=== PATIENT | female | born 1950 | race Caucasian/White ===

== ENCOUNTER 2019-11-30 09:02 | Emergency (ER) | payer MEDICARE, SELFPAY ==
--- NOTE | ~2019-11-30 | XR_ITS ---
EXAMINATION: XR chest 2V EXAM DATE: 11/30/2019 09:44 INDICATION: Weakness. TECHNIQUE: Frontal and lateral projections of the chest obtained and reviewed. Comparison is made to prior examination from 05/29/2004. FINDINGS: The lungs are clear. There are no pleural effusions. The cardiomediastinal silhouette is within normal limits. There is no pneumothorax suspected. Moderate thoracic spondylosis. IMPRESSION: No acute cardiopulmonary findings. Reviewed, dictated and finalized at location A.
--- NOTE | ~2019-11-30 | CT_ITS ---
EXAMINATION: CT brain wo con DATE: 11/30/2019 10:44 INDICATION: Altered mental status post fall from bed with right-sided head injury TECHNIQUE: Computed tomography (CT) of the head was performed without intravenous contrast. Sagittal and coronal reconstructions were performed. The mA was adjusted according to patient size. Iterative reconstruction technique was employed. The dose-length product was 605.33 mGy-cm. COMPARISON: head CT dated 05/27/2015 FINDINGS: No fracture. No acute intracranial hemorrhage, acute infarction or abnormal extra axial fluid collect ion. Small region of encephalomalacia in the medial right occipital lobe consistent with chronic infa rct. Symmetric prominence of the sulci consistent with mild age-appropriate diffuse cerebral volume l oss. Ventricles are normal and symmetric. No mass/mass effect. Small bilateral mastoid effusions. Ch anges of bilateral intraocular lens replacement. The orbits, paranasal sinuses and mastoid air cells are normal. Mild atherosclerotic calcification at the bilateral carotid siphons. IMPRESSION: 1. No fracture or acute intracranial process. 2. Small old right occipital lobe infarct. Reviewed, dictated and finalized at location A.
[2019-11-30 09:06] VITALS: BP 149/85; PULSE 78; RESP 15; TEMP 36.3; O2SAT 100
--- NOTE | 2019-11-30 09:20 | ECG_ITS ---
Measurements Intervals [place] Rate: 82 P: 56 NH: 170 QRS: 56 QRSD: 94 T: 47 QT: 369 QTc: 433 Interpretive Statements SINUS RHYTHM MINIMAL Q WAVES- INFERIOR LEADS BASELINE ARTIFACT- I, II, III, AVR, AVL, AVF, V1, V4 BORDERLINE ECG Electronically Signed On 11-30-2019 10:14:35 CDT by Hesham Mathur D.O.
[2019-11-30 09:21] LABS: Glucose Point of Care 78 (65-105)
[2019-11-30 09:24] VITALS: PULSE 84; RESP 22
[2019-11-30 09:30] VITALS: PULSE 82; RESP 16
--- NOTE | 2019-11-30 09:45 | ED.FALL ---
HPI - Fall General Chief Complaint: Fall Stated Complaint: BACK PAIN /FATIGUE Time Seen by Provider: 11/30/19 09:46 Source: patient and family () Mode of arrival: EMS Limitations: no limitations History of Present Illness HPI Narrative: A 69 y/o female presents to the ED, via EMS, after a fall last night. Per , pt fell out of bed when trying to get up to use the restroom. Pt fell onto her knees and she denies a HI. Pt then fell asleep in her recliner and then didn't know where she was or what day it was when she woke up this morning. Pt was not confused yesterday according to her . Pt did take her Vicodin medication and a shot of Fireball last night before she went to sleep. 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 She reports a cough, diarrhea, and urinary frequency due to her water pill, but denies N/V. Fall witnessed: yes, by family () Place fall occurred: home Context: other (fell out of bed) Related Data Home Medications Medication Instructions Recorded Confirmed aspirin 325 mg PO DAILY 07/31/19 07/31/19 Allergies Allergy/AdvReac Type Severity Reaction Status Date / Time rosuvastatin Allergy Unknown Unknown Verified 11/30/19 09:14 Sulfa (Sulfonamide Allergy Unknown Unknown Verified 11/30/19 09:14 Antibiotics) sulfanilamide Allergy Unknown Unknown Verified 11/30/19 09:14 Review of Systems Review of Systems: All systems reviewed & are unremarkable except as noted in HPI and below Constitutional: Comments: Reports: a fall Respiratory: Respiratory: Reports cough Gastrointestinal: Gastrointestinal: Reports diarrhea, Denies nausea and Denies vomiting Genitourinary: Genitourinary: Reports nocturia Neurologic: Comments: Denies: HI PMFSH Past Medical History Medical History Arthritis CVA (cerebral vascular accident) Diabetes Enlarged blind spot of left eye Gout HLD (hyperlipidemia) HTN (hypertension) Surgical History Surgical History H/O section H/O laparoscopy History of appendectomy Family History Family History Mother Family history of diabetes mellitus in first degree relative Patient's mother is Acute myocardial infarction Sibling Family history of malignant neoplasm Family history of dementia Family history of Parkinson's disease Father Family history of malignant neoplasm Social History Social History Smoking status: Current every day smoker Smoking end date: 09/12/13 Alcohol intake: never Comments PCP: Dr. Vazquez Exam Const: General: no acute distress, alert and ill appearing chronically Orientation/consciousness: patient oriented x3 HENMT: Mouth: Yes dry mucous membranes Eyes: Pupils: Equal, round and reactive pupils present Resp: Effort & Inspection: normal respiratory effort Auscultation: clear to auscultation bilaterally Cardio: Rate: regular rate Rhythm: regular rhythm Skin: General skin exam: normal color Neuro: General: patient oriented x3, moves all extremities and no focal motor deficits Speech: normal speech Extrem: General: normal to inspection Course Vital Signs Vital signs: Vital Signs Temperature 36.3 C L 11/30/19 09:06 Pulse Rate 78 11/30/19 09:06 Respiratory Rate 15 11/30/19 09:06 Blood Pressure 149/85 H 11/30/19 09:06 Pulse Oximetry 100 11/30/19 09:06 Temperature 36.3 C L 11/30/19 09:06 Pulse Rate 84 11/30/19 12:08 Respiratory Rate 14 11/30/19 12:08 Blood Pressure 156/77 H 11/30/19 12:08 Pulse Oximetry 94 11/30/19 12:08 MDM - Fall MDM Narrative Medical decision making narrative: Work-up essentially negative. Symptoms most likely due to combining ambien, pain
[2019-11-30 09:53] LABS: Basophils Absolute Auto 0.1 K/mm3 (0.0-0.1); Basophils Percent Auto 1.2 % (0.2-1.2); Eosinophils Absolute Auto 0.3 K/mm3 (0-0.3); Eosinophils Percent Auto 4.9 % (0-4.4); Hematocrit 41.6 % (37.0-47.0); Hemoglobin 13.3 g/dL (12.0-15.0); Immature Granulocyte Absolute 0.01 K/mm3 (0.00-0.031); Immature Granulocyte Percent A 0.2 % (0-0.5); Lymphocytes Absolute Auto 2.08 K/mm3 (0.9-3.2); Lymphocytes Percent Auto 35.2 % (18.3-44.2); Mean Corpuscular Volume 93.9 fl (80-100); Monocytes Absolute Auto 0.5 K/mm3 (0.1-0.6); Neutrophils Percent Auto 50.5 % (45.5-73.1); Platelet Count Result 198 k/mm3 (150-375); Red Blood Count 4.43 M/mm3 (4.2-5.4); Red Cell Distribution Width 15.9 % (11.5-14.5); White Blood Count 5.9 K/mm3 (4.5-10.0)
[2019-11-30 10:05] LABS: Alanine Aminotransferase 30 U/L (4-35); Albumin Level 4.4 g/dL (3.5-5.1); Alkaline Phosphatase 108 U/L (38-126); Aspartate Amino Transferase 34 U/L (14-36); Bilirubin,Total 0.4 mg/dL (0.2-1.3); Blood Urea Nitrogen 24 mg/dL (7-17); Calcium 8.8 mg/dL (8.4-10.2); Carbon Dioxide 25 mmol/L (22-30); Chloride 105 mmol/L (98-107); Estimated CRCL calculation 43 ml/min; Estimated Glomerular Filt Rate 45; Glucose 87 mg/dL (65-105); Potassium 4.5 mmol/L (3.4-5.0); Sodium 139 mmol/L (137-145)
[2019-11-30 10:06] LABS: Add Urine Microscopic? NO; Appearance Urine Clear (Clear); Bilirubin Urine Negative (Negative); Blood Urine Negative (Negative); Color Urine Colorless (Yellow); Glucose Urine UA Negative (Negative); Ketones Urine Negative (Negative); Leukocyte Esterase Ur Negative LEU/UL (Negative); Nitrate Urine Negative (Negative); Protein Urine Negative (Negative); Specific Grav Ur 1.008 (1.001-1.035); Urobilinogen Urine Negative mg/dL (<2.0)
[2019-11-30] MEDS: SODIUM CHLORIDE 0.9% IV 1,000 ML 999 ML IV CONT (10:25)
[2019-11-30 12:08] VITALS: BP 156/77; PULSE 84; RESP 14; O2SAT 94
== END 2019-11-30 12:09 | disposition home or self-care (01) ==
PROVIDERS: Emergency Provider Emergency Medicine; PCP Internal Medicine
DX: R41.0 Disorientation, unspecified (principal); M19.90 Unspecified osteoarthritis, unspecified site; Z86.73 Personal history of transient ischemic attack (TIA), and cerebral infarction without residual deficits; E11.9 Type 2 diabetes mellitus without complications; E78.5 Hyperlipidemia, unspecified; I10 Essential (primary) hypertension; M10.9 Gout, unspecified; Z79.82 Long term (current) use of aspirin
CPT/HCPCS: 36415; 51701; 70450; 71046; 80053; 81003; 82948; 85025; 93005; 96360; 99284; J7030

== ENCOUNTER 2020-12-03 07:06 | Outpatient (CLI) | payer MEDICARE, SELFPAY ==
--- NOTE | ~2020-12-03 | XR_ITS ---
XR sinus <3V 12/03/2020 07:29 Indication: Right sinus drainage Procedure: 5 views of the paranasal sinuses Comparison: No prior studies for comparison. Findings: No significant opacification of the paranasal sinuses. No air-fluid levels. No significant mucoperiosteal reaction identified. Mild bowing of the nasal septum to the right superiorly. Mastoids appear pneumatized. Impression: 1: No significant abnormality of the paranasal sinuses. Reviewed, dictated and finalized at location A. Impression: 1: No significant abnormality of the paranasal sinuses.
== END 2020-12-03 07:07 | disposition home or self-care (01) ==
PROVIDERS: PCP Internal Medicine; Visit Provider Internal Medicine
DX: R43.2 Parageusia (principal)
CPT/HCPCS: 70210

== ENCOUNTER 2021-01-30 07:38 | Outpatient (CLI) | payer MEDICARE, SELFPAY ==
--- NOTE | ~2021-01-30 | US_ITS ---
EXAMINATION: US art doppler w press UE BI EXAM DATE: 01/30/2021 08:40 INDICATION: I73.9 - Peripheral vascular disease, unspecified PVD. Red discoloration 2 digits. TECHNIQUE: Segmental pressures and plethysmographic and Doppler waveforms of the upper extremity phyllis grzegorz were obtained. There is no prior study for comparison. FINDINGS: Right and left brachial artery pressures of 153 mm Hg and 146 mm Hg, respectively, are concordant (no rmal difference <= 30 mmHg). RIGHT: Right ulnar/brachial arterial Doppler ratio 0.90 (138 mmHg). Right radial/brachial arterial Doppler ratio 0.86 (132 mmHg). Right index finger 146 mmHg. The waveforms are biphasic. LEFT: Left ulnar/brachial arterial Doppler ratio 0.82 (119 mmHg). Left radial/brachial arterial ratio 0.92 (135 mmHg). Left index finger 143 mmHg. The waveforms are biphasic. IMPRESSION: Normal wrist brachial indices as above. Reviewed, dictated and finalized at location A.
== END 2021-01-30 07:39 | disposition home or self-care (01) ==
PROVIDERS: PCP Internal Medicine; Visit Provider Internal Medicine
DX: I73.9 Peripheral vascular disease, unspecified (principal)
CPT/HCPCS: 93923

== ENCOUNTER 2022-01-14 07:11 | Outpatient (CLI) | payer MEDICARE, SELFPAY ==
--- NOTE | ~2022-01-14 | XR_ITS ---
EXAMINATION: XR lumbar spine 2-3V DATE: 01/14/2022 07:51 INDICATION: Severe low back pain TECHNIQUE: Anteroposterior and lateral views of the lumbar spine, and cone-down lateral view of the l umbosacral junction were obtained. COMPARISON: 05/29/2018 FINDINGS: Bone alignment is normal. There is no fracture. There is severe loss of intervertebral disc space height throughout the lumbar spine. The vertebral body heights are maintained. There is severe facet osteoarthritis of the lower lumbar spine. Calcified atherosclerosis is noted. There is moderat e osteoarthritis of the hips. Calcified uterine fibroid is noted. There is lumbar levocurvature. IMPRESSION: 1. Severe lumbar spondylosis without acute findings or significant interval change. Reviewed, dictated and finalized at location B. IMPRESSION: 1. Severe lumbar spondylosis without acute findings or significant interval jairon nge.
--- NOTE | ~2022-01-14 | CT_ITS ---
EXAMINATION: CT lung screening DATE: 01/14/2022 07:38 INDICATION: Personal history of nicotine dependence, current smoker with 45 pack year history TECHNIQUE: Computed tomography (CT) of the chest was performed without intravenous contrast. The dose -length product (DLP) was 398.06 mGy-cm. Automated exposure control and iterative reconstruction tech Mingyian were employed. COMPARISON: 01/30/2018 FINDINGS: There is mild emphysema. There is a stable 2 mm nodule in the right upper lobe. There is a new 3 mm nodule in the right middle lobe on image 64. The lungs are free of focal airspace opacities. There is no pleural effusion or pneumothorax. The heart size is normal. There are no pathologically enlarged thoracic lymph nodes. Calcified coronary artery atherosclerosis is noted. Stable bilateral a drenal masses are consistent with adenomas. There is moderate thoracic spondylosis. IMPRESSION: 1. Lung-RADS category 2: Benign appearance or behavior. Continue annual screening with noncontrast lo w-dose chest CT in 12 months. Reviewed, dictated and finalized at location B. IMPRESSION: 1. Lung-RADS category 2: Benign appearance or behavior. Continue annual screeni ng with noncontrast low-dose chest CT in 12 months.
== END 2022-01-14 07:12 | disposition home or self-care (01) ==
LOC: ANHIMG 07:22
PROVIDERS: PCP Internal Medicine; Visit Provider Internal Medicine
DX: Z12.2 Encounter for screening for malignant neoplasm of respiratory organs (principal); Z87.891 Personal history of nicotine dependence; M47.9 Spondylosis, unspecified
CPT/HCPCS: 71271; 72100